=== PATIENT | female | born 1970 | race Caucasian/White ===

== ENCOUNTER 2016-11-25 13:09 | Emergency (ER) | payer OTHER | END 2016-11-25 13:21 | disposition home or self-care (01) | LOC: ER 13:09 | DX: I80.02 Phlebitis and thrombophlebitis of superficial vessels of left lower extremity (principal); F17.210 Nicotine dependence, cigarettes, uncomplicated; Z90.49 Acquired absence of other specified parts of digestive tract; Z79.82 Long term (current) use of aspirin; Z91.041 Radiographic dye allergy status; Z88.1 Allergy status to other antibiotic agents; Z88.8 Allergy status to other drugs, medicaments and biological substances ==